=== PATIENT | male | born 1985 | race Caucasian/White ===

== ENCOUNTER 2023-05-03 01:42 | Emergency (ER) | payer OTHER ==
[2023-05-03] MEDS ORDERED: SULFAMETHOXAZOLE W/TRIMETHOPRI 1 COMBO TAB PO ONE (02:00)
[2023-05-03 02:01] VITALS: BP 136/79
[2023-05-03] MEDS ORDERED: BACTRIM DS1 TAB PO ×2 (02:05→02:08)
== END 2023-05-03 02:15 | disposition home or self-care (01) | DRG 603 ==
LOC: ED 01:42
DX: L03.316 Cellulitis of umbilicus (principal); G56.03 Carpal tunnel syndrome, bilateral upper limbs